=== PATIENT | male | born 1965 | race Two or more races ===

== ENCOUNTER → 2016-07-06 | Outpatient (CLI) | payer MEDICAID, MEDICARE ==
--- NOTE | 2016-07-06 16:44 | REP ---
Right shoulder three views: There are no comparisons. Mineralization joint spaces are normal. There is no fracture or dislocation. There are no calcifications or foreign bodies. The acromioclavicular joint is mildly widened, congenital versus post-traumatic. Signed by Guerrero Arriaga MD 07/06/2016 04:35 P
--- NOTE | 2016-07-06 16:46 | REP ---
Right ribs and AP pelvis total of seven views: There are no comparison studies. There are multiple right rib fractures, age indeterminate. There is a fracture of the proximal shaft of the right clavicle, age indeterminate. There is no pneumothorax, hemothorax or pulmonary contusion. Cardiac size normal. The lavelle, mediastinum, and bony thorax are otherwise unremarkable. Signed by Guerrero Arriaga MD 07/06/2016 04:37 P
== END ==
LOC: M LRY 14:58
PROVIDERS: ATTEND Nurse Practitioner Family
DX: M25.511 Pain in right shoulder (principal)